=== PATIENT | female | born 1975 | race Caucasian/White ===

== ENCOUNTER 2019-11-25 00:35 | Emergency (ER) | payer OTHER ==
[~2019-11-25] VITALS: Ht 149.9 cm; Wt 61.7 kg
[~2019-11-25 00:35] MED LIST: IBUPROFEN 600600 M1 PO; NORCO 5-325 TA1 EACH PO; ONDANSETRON HCL4 M2 PO
[2019-11-25] MEDS ORDERED: LUNESTA3 MG PO (00:57)
[2019-11-25] MEDS ORDERED: HYDROXYZINE HCL25 M2 PO (00:57)
[2019-11-25] MEDS ORDERED: EFFEXOR XR150 MG PO (00:58)
[2019-11-25] MEDS ORDERED: BUSPAR30 MG PO (00:58)
[2019-11-25 02:25] LABS: ABSOLUTE NEUTROPHILS 3.9 thou/uL (1.4-8.2); BASOPHILS 0.5 % (0.0-2.0); EOSINOPHILS 1.6 % (0.0-3.0); HEMATOCRIT 42.5 % (37.0-47.0); HEMOGLOBIN 14.1 gm/dL (12.0-15.0); LYMPHOCYTES 33.4 % (24.0-44.0); MCH 31.6 pg (26.0-34.0); MCHC 33.1 g/dL (28.0-37.0); MCV 95.3 fL (80.0-100.0); MONOCYTES 6.6 % (1.0-8.0); PLATELET COUNT 269 thou/uL (150-400); POLYS 57.9 % (36.0-66.0); RBC 4.46 mil/uL (4.20-5.00); RDW 12.7 % (10.5-14.5); WBC 6.7 thou/uL (4.0-11.0)
[2019-11-25 02:36] LABS: AMP/METHAMP Negative (Negative); BARBITURATES Negative (Negative); BENZODIAZEPINES Negative (Negative); COCAINE Negative (Negative); METHADONE Negative (Negative); OPIATES Negative (Negative); PCP Negative (Negative)
[2019-11-25 02:51] LABS: ANION GAP 12 mmol/L (7-16); BUN 9 mg/dL (7-18); CALCIUM 8.7 mg/dL (8.5-10.1); CHLORIDE 107 mmol/L (98-107); CO2 24 mmol/L (21-32); CREATININE 0.7 mg/dL (0.6-1.0); GLUCOSE 97 mg/dL (74-106); POTASSIUM 3.5 mmol/L (3.5-5.1); SODIUM 143 mmol/L (136-145)
[2019-11-25 02:57] LABS: ALBUMIN 4.1 g/dL (3.4-5.0); DIRECT BILIRUBIN 0.1 mg/dL (<0.1-0.2); SALICYLATE < 2.8 mg/dL (2.8-20.0); SGOT 14 U/L (15-37); SGPT 16 U/L (30-65); TOTAL BILIRUBIN 0.2 mg/dL (0.2-1.0); TOTAL PROTEIN 7.6 g/dL (6.4-8.2)
--- NOTE | 2019-11-25 16:50 | EKG ---
[facility] [place] [address] ELECTROCARDIOGRAM REPORT Name: EARL LINO Room #: [facility]#: [id number] Admission: 11/25/19 Attend Phys: Discharge: Date of : 75 Report #: [id number] THIS REPORT FOR: cc: NO FAMILY PHYSICIAN or PCP NO FAMILY PHYSICIAN or PCP Archie Chu MD [facility] ~ THIS REPORT FOR: //name// [facility] ED Test Date: 2019-11-25 Test Time: 01:18:49 Pat Name: EARL LINO Department: Room: Gender: F Electronics Engineer: : 1975 Requested By: Lisa Santamaria Order Number: [id number] MD: Archie Chu Measurements Intervals [place] Rate: 57 P: 55 OR: 152 QRS: 14 QRSD: 102 T: 37 QT: 432 QTc: 421 Interpretive Statements Sinus rhythm Low voltage, precordial leads No previous ECG available for comparison Electronically Signed On 11-25-2019 16:50:02 CDT by Archie Chu [email or web address] <ELECTRONICALLY SIGNED> By: Archie Chu MD, FACC 11/25/19 1650 D: [id number] Archie Chu MD, FACC /EPI
[2019-11-26 11:28] VITALS: BP 92/51
== END 2019-11-26 11:28 | disposition still patient (30) ==
LOC: ER 00:35
PROVIDERS: Emergency Medicine
DX: R45.851 Suicidal ideations (principal); H92.01 Otalgia, right ear; Z79.899 Other long term (current) drug therapy; Z88.8 Allergy status to other drugs, medicaments and biological substances; Z20.828 Contact with and (suspected) exposure to other viral communicable diseases